=== PATIENT | female | born 1980 | race Caucasian/White ===

== ENCOUNTER 2024-02-16 16:29 | Observation (INO) | payer OTHER, SELFPAY ==
[2024-02-16 19:07] LABS: IRON,FE 11 ug/dL (50-170); PERCENT FE SATURATION 2 % (20-55); TOTAL IRON BINDING CAPACITY 602 ug/dl (250-450)
[2024-02-16 19:16] LABS: FERRITIN 2 ng/ml (8-388); LACTATE DEHYDROGENASE,LDH 174 U/L (82-234)
[2024-02-16] MEDS: Acetaminophen 500 MG Tab PO STA (21:25)
[2024-02-16 21:51] LABS: ALANINE AMINOTRANSFERASE,ALT 14 U/L (12-78); ALBUMIN 3.7 g/dL (3.4-5.0); ALKALINE PHOSPHATASE 76 U/L (46-116); ASPARTATE AMNIOTRANSFERASE,AST 13 U/L (15-37); BILIRUBIN TOTAL 0.4 mg/dL (0.2-1.0); BLOOD UREA NITROGEN,BUN 12 mg/dL (7-18); CALCIUM 9.1 mg/dL (8.5-10.1); CARBON DIOXIDE,CO2 23 mmol/L (21-32); CHLORIDE,CL 105 mmol/L (100-108); CREATININE 0.8 mg/dL (0.6-1.0); EST CRCL DRUG DOSING (CG) 83.27 mL/min; ESTIMATED GFR 95 mL/min (>60); GLUCOSE RANDOM 126 mg/dL (74-106); POTASSIUM,K 4.1 mmol/L (3.6-5.2); PROTEIN TOTAL,TP 7.5 g/dL (6.4-8.2); SODIUM,NA 140 mmol/L (140-148)
[2024-02-16] MEDS ORDERED: Melatonin 3 MG Tab PO PRN (22:19)
[2024-02-16] MEDS ORDERED: Ondansetron 4 MG/2 ML SDV IV PRN (22:19)
[2024-02-16] MEDS ORDERED: Ondansetron 4 MG Tab.DIS PO PRN (22:19)
[2024-02-16 22:29] LABS: PROTHROMBIN TIME 10.7 sec (9.2-10.6)
[2024-02-17 00:52] LABS: APPEARANCE,URINE SLIGHTLY CLOUDY (CLEAR); BILIRUBIN,URINE NEGATIVE (NEGATIVE); COLOR,URINE YELLOW (YELLOW); GLUCOSE,URINE NEGATIVE (NEGATIVE); KETONES,URINE NEGATIVE (NEGATIVE); LEUKOCYTE ESTERASE,URINE NEGATIVE (NEGATIVE); NITRITE,URINE POSITIVE (NEGATIVE); OCCULT BLOOD,URINE NEGATIVE (NEGATIVE); PROTEIN,URINE NEGATIVE (NEGATIVE); UROBILINOGEN,URINE 0.2 EU/dL (0.2-1.0)
[2024-02-17 00:59] LABS: AMORPHOUS SEDIMENT,URINE NOT SEEN; BACTERIA,URINE MANY; EPITHELIAL CELLS,URINE FEW; MUCUS,URINE NOT SEEN; RBC,URINE 0-5 (0-5); WBC,URINE 0-5 (0-5)
[2024-02-17 01:44] LABS: RETICULOCYTE COUNT PERCENT 1.36 % (0.03-0.11)
[2024-02-17 05:33] LABS: HEMATOCRIT 24.8 % (34.3-46.0); MEAN CORPUSCULAR HEMOGLOBIN 18.8 pg (31.6-35.5); MEAN CORPUSCULAR HGB CONC 26.6 g/dL (31.6-35.5); MEAN CORPUSCULAR VOLUME 70.7 fL (81.4-99.0); WHITE BLOOD CELL COUNT,WBC 7.6 K/uL (3.2-11.0)
[2024-02-17 06:01] LABS: HEMOGLOBIN 6.6 g/dL (11.2-15.5)
[2024-02-17 06:03] LABS: RED BLOOD CELL COUNT 3.51 M/uL (3.77-5.24)
[2024-02-17 06:08] LABS: INR 1.1; PROTHROMBIN TIME 11.3 sec (9.2-10.6)
[2024-02-17 06:24] LABS: ANION GAP 8.3 mmol/L (5.0-14.0); CALCIUM 8.8 mg/dL (8.5-10.1); CREATININE 0.7 mg/dL (0.6-1.0); EST CRCL DRUG DOSING (CG) 95.17 mL/min; FOLIC ACID 10.7 ng/ml (8.6-58.9); POTASSIUM,K 4.4 mmol/L (3.6-5.2); TSH ULTRASENSITIVE 1.882 uIU/mL (0.358-3.740)
[2024-02-17] MEDS: Nitrofurantoin Monohydrate/Macrocrystalline 100 MG Cap PO SCH (08:57)
[2024-02-17] MEDS: Cyanocobalamin (Vitamin B12) 1,000 MCG Tab PO SCH (09:50)
[2024-02-17] MEDS: Acetaminophen 325 MG Tab PO PRN (10:01)
[2024-02-17] MEDS: Sodium Ferric Gluconate Cmplex 250 MG in Sodium Chloride 0.9% 100 ML IV ONE (11:16)
[2024-02-17 15:28] VITALS: BP 123/65; PULSE 83
== END 2024-02-17 15:40 | disposition home or self-care (01) ==
LOC: JP.ED 16:29 → JP.MS 21:37
PROVIDERS: ADMIT Registered Nurse; ATTEND Internal Medicine
DX: D50.9 Iron deficiency anemia, unspecified (principal); N30.00 Acute cystitis without hematuria; R53.1 Weakness; R06.00 Dyspnea, unspecified; F17.210 Nicotine dependence, cigarettes, uncomplicated; Z98.84 Bariatric surgery status; Z79.899 Other long term (current) drug therapy
CPT/HCPCS: 36415; 36430; 71045; 71045-26; 80048; 80053; 81001; 82272; 82607; 82728; 82746; 83550; 83615; 84443; 84484; 85018; 85027; 85045; 85379; 85610; 86850; 86900; 86901; 86920; 86922; 87086; 87088; 87186; 93005; 93010; 96365; 96366; 99222; 99238; 99285; A9270-GY; G0378; J2916; J3490; P9016